=== PATIENT | male | born 1995 | race Caucasian/White ===

== ENCOUNTER 2020-01-19 13:31 | Emergency (ER) | payer BC, OTHER ==
[~2020-01-19] VITALS: Ht 200.7 cm; Wt 127.3 kg
[2020-01-19 13:45] VITALS: TEMP 98.7
[2020-01-19 14:39] LABS: BASO % 0.2 % (0.0-2.0); GRAN # 9.1 (1.4-6.5); GRAN % 83.1 % (42.2-75.2); HEMATOCRIT 42.4 % (42.0-52.0); HEMOGLOBIN 15.3 g/dl (13.5-18.0); LYMPH # 1.4 (1.2-3.4); LYMPH % 12.6 % (20.0-51.0); MEAN CELL VOLUME 84 fl (80.0-100.0); MEAN CORPUSCULAR HEMOGLOBIN 30 pg (27.0-31.0); MEAN CORPUSCULAR HGB CONC 36 g/dl (33.0-37.0); MEAN PLATELET VOLUME 8.7 fl (7.4-10.4); MONO # 0.4 (0.1-0.6); MONO % 3.7 % (1.7-9.3); PLATELET COUNT 276 K/mm3 (130-400); RED BLOOD COUNT 5.04 M/mm3 (4.20-5.60); REDCELL DISTRIBUTION WIDTH-CV 11.5 % (11.5-14.5)
[2020-01-19 14:49] LABS: INR 1.2 (0.8-3.0); PROTHROMBIN TIME 13.5 SECONDS (9.7-12.8)
[2020-01-19 14:51] LABS: PARTIAL THROMBOPLASTIN TIME 35.5 SECONDS (26.0-37.0)
[2020-01-19 15:06] LABS: ALANINE AMINOTRANSFERASE 29 U/L (4-49); ALKALINE PHOSPHATASE 80 U/L (50-136); ANION GAP 13 mmol/L (7-16); AST,SGOT 38 U/L (15-37); BILIRUBIN,TOTAL 0.7 mg/dL (0.0-1.0); BLOOD UREA NITROGEN 18 mg/dL (9-20); CARBON DIOXIDE 20 mmol/L (22-30); CHLORIDE 106 mmol/L (98-107); CREATININE, serum 1.08 (0.66-1.25); GLUCOSE 100 mg/dL (74-106); POTASSIUM 3.8 mmol/L (3.4-5.0); SODIUM 140 mmol/L (137-145); TOTAL PROTEIN 7.9 gm/dL (6.4-8.2)
[2020-01-19 15:08] LABS: C-REACTIVE PROTEIN < 0.5 mg/dL (0.0-0.9)
[2020-01-19 15:23] LABS: TROPONIN-I < 0.012 ng/mL (0.000-0.035)
[2020-01-19] MEDS ORDERED: ZITHROMAX Z PA250 MG PO ×2 (16:00→16:21)
[2020-01-19 16:20] VITALS: BP 149/84; PULSE 102
== END 2020-01-19 16:20 | disposition home or self-care (01) ==
LOC: COL.ER 13:31
PROVIDERS: Family Medicine
DX: J18.8 Other pneumonia, unspecified organism (principal); Z86.19 Personal history of other infectious and parasitic diseases
CPT/HCPCS: J0696; J7030